=== PATIENT | male | born 1955 | race Caucasian/White ===

== ENCOUNTER 2016-10-12 19:29 | Inpatient (IN) | payer MEDICARE, MEDICAID ==
[~2016-10-12] VITALS: Ht 182.9 cm; Wt 115.0 kg
[~2016-10-12 19:29] MED LIST: ALLO300 PO; AMIT25TA9 PO; ASPI-1061 PO; ATOR20TA86 PO; DIVA500T52 PO; LISI-661 PO; LURA40 PO; METF850T2 PO
[2016-10-12] MEDS ORDERED: SILV20CR2 TP (19:42)
[2016-10-12] MEDS ORDERED: NORT25 PO (19:42)
[2016-10-12] MEDS ORDERED: DOXY100C PO (19:42)
[2016-10-12] MEDS ORDERED: INSLAN SQ (19:42)
[2016-10-12 19:47] LABS: BASOPHILS % (AUTO) 0.6 % (0.0-2.0); EOSINOPHILS % (AUTO) 2.8 % (1.0-6.0); HEMATOCRIT 45.4 % (41-53); HEMOGLOBIN 14.7 g/dL (13.5-17.5); LYMPHOCYTES # (AUTO) 1.9 K/uL (1.0-4.8); LYMPHOCYTES % (AUTO) 22.5 % (22.0-44.0); MEAN CORPUSCULAR HEMOGLOBIN 29.5 pg (26.0-34.0); MEAN CORPUSCULAR HGB CONC 32.4 G/dL (31.0-37.0); MEAN CORPUSCULAR VOLUME 91 fL (80-100); MONOCYTES # (AUTO) 0.7 K/uL (0.1-1.0); MONOCYTES % (AUTO) 8.3 % (2.0-9.0); NEUTROPHILS # (AUTO) 5.4 K/uL (1.8-7.7); NEUTROPHILS % (AUTO) 65.8 % (40.0-70.0); PLATELET COUNT (AUTO) 189 K/uL (150-450); RED BLOOD CELL COUNT(AUTO) 4.98 MIL/uL (4.50-5.90); RED CELL DISTRIBUTION WIDTH 14.8 % (11.5-14.5); WHITE BLOOD COUNT (AUTO) 8.2 K/uL (4.5-11.0)
[2016-10-12 19:57] LABS: CALCIUM, TOTAL 8.5 mg/dL (8.8-10.5); CREATININE 1.41 mg/dL (0.60-1.30); POTASSIUM 4.3 mmol/L (3.5-5.1)
[2016-10-12 20:03] LABS: ALBUMIN 3.7 g/dL (3.4-5.0); BILIRUBIN,TOTAL 0.7 mg/dL (0.1-1.0); TOTAL PROTEIN, SERUM 7.4 g/dL (6.4-8.2)
[2016-10-12] MEDS ORDERED: NITROGLYCERIN 2% (1 GM=INCH) PACKET TP ONE (20:30)
[2016-10-12] MEDS ORDERED: ASPIRIN 325 MG TABLET PO ONE (20:30)
[2016-10-12] MEDS ORDERED: NITROGLYCERIN 0.4 MG SUBLINGUAL TABLET #25 SL ONE (20:30)
[2016-10-12] MEDS ORDERED: ONDANSETRON HCL 4 MG/2 ML VIAL IVP ONE (21:00)
[2016-10-12] MEDS ORDERED: HYDROmorphone 2 MG/ML SYRINGE IVP ONE (21:00)
[2016-10-12] MEDS ORDERED: ONDANSETRON HCL 4 MG/2 ML VIAL IVP PRN (22:00)
[2016-10-12] MEDS ORDERED: ACETAMINOPHEN 325 MG TABLET PO PRN (22:00)
[2016-10-12] MEDS ORDERED: 0.9% SODIUM CHLORIDE 10 ML SYRINGE IVP PRN (22:00)
[2016-10-13 05:48] LABS: BASOPHILS % (AUTO) 0.5 % (0.0-2.0); EOSINOPHILS % (AUTO) 3.8 % (1.0-6.0); HEMATOCRIT 42.1 % (41-53); HEMOGLOBIN 13.6 g/dL (13.5-17.5); LYMPHOCYTES # (AUTO) 1.5 K/uL (1.0-4.8); LYMPHOCYTES % (AUTO) 21.1 % (22.0-44.0); MEAN CORPUSCULAR HEMOGLOBIN 29.7 pg (26.0-34.0); MEAN CORPUSCULAR HGB CONC 32.3 G/dL (31.0-37.0); MEAN CORPUSCULAR VOLUME 92 fL (80-100); MONOCYTES # (AUTO) 0.8 K/uL (0.1-1.0); NEUTROPHILS # (AUTO) 4.4 K/uL (1.8-7.7); NEUTROPHILS % (AUTO) 62.6 % (40.0-70.0); PLATELET COUNT (AUTO) 178 K/uL (150-450); RED BLOOD CELL COUNT(AUTO) 4.58 MIL/uL (4.50-5.90); RED CELL DISTRIBUTION WIDTH 14.4 % (11.5-14.5); WHITE BLOOD COUNT (AUTO) 7.1 K/uL (4.5-11.0)
[2016-10-13 06:07] LABS: ALBUMIN 3.3 g/dL (3.4-5.0); BILIRUBIN,TOTAL 0.7 mg/dL (0.1-1.0); CALCIUM, TOTAL 8.1 mg/dL (8.8-10.5); CREATININE 1.3 mg/dL (0.60-1.30); POTASSIUM 4.4 mmol/L (3.5-5.1); TOTAL PROTEIN, SERUM 6.7 g/dL (6.4-8.2)
[2016-10-13 07:21] LABS: GLUCOSE,POINT OF CARE 217 MG/DL (70-110)
[2016-10-13 11:21] LABS: GLUCOSE,POINT OF CARE 268 MG/DL (70-110)
[2016-10-13] MEDS ORDERED: INSULIN REGULAR, HUMAN 100 UNITS/ML SQ PRN (13:30)
[2016-10-13] MEDS ORDERED: DEXTROSE 50%-WATER 25 GM/50 ML SYG IVP PRN (13:45)
[2016-10-13 14:04] LABS: GLUCOSE,POINT OF CARE 214 MG/DL (70-110)
[2016-10-13] MEDS: MetFORMIN HCL 850 MG TABLET PO SCH ×2 (15:20→17:16)
[2016-10-13 17:28] VITALS: BP 150/75
[2016-10-13] MEDS ORDERED: LURASIDONE HCL 40 MG TABLET PO SCH (18:00)
[2016-10-13] MEDS ORDERED: MetFORMIN HCL 850 MG TABLET PO SCH (18:00)
[2016-10-13] MEDS ORDERED: HYDROCODONE/ACETAMINOPHEN 5-325 MG TABLET PO PRN (18:00)
[2016-10-13 19:15] VITALS: BP 125/69
[2016-10-13] MEDS ORDERED: SODIUM CHLORIDE 0.9% 100 ML ONE (21:22)
[2016-10-13] MEDS ORDERED: IOVERSOL 350 MG/ML 150 ML VIAL ONE (21:22)
[2016-10-14] VITALS: BP 149/78
[2016-10-14] MEDS: DIVALPROEX SODIUM 500 MG ER TABLET PO SCH ×2 (00:16→21:23)
[2016-10-14] MEDS: ATORVASTATIN CALCIUM 20 MG TABLET PO SCH ×2 (00:17→21:23)
[2016-10-14] MEDS: ALLOPURINOL 100 MG TABLET PO SCH ×3 (00:18→21:23)
[2016-10-14] MEDS: NORTRIPTYLINE HCL 25 MG CAPSULE PO SCH ×2 (00:18→21:23)
[2016-10-14] MEDS: DOXYCYCLINE 100 MG CAPSULE PO SCH ×3 (00:18→21:23)
[2016-10-14] MEDS: HEPARIN SODIUM,PORCINE 5,000 UNITS/ML VIAL SQ SCH ×3 (00:19→15:34)
[2016-10-14] MEDS: INSULIN DETEMIR 100 UNITS/ML SQ SCH ×2 (00:20→21:30)
[2016-10-14] MEDS: INSULIN ASPART 100 UNITS/ML SQ PRN ×5 (00:21→20:56)
[2016-10-14 04:45] VITALS: BP 112/54
[2016-10-14 07:50] VITALS: BP 125/75
[2016-10-14] MEDS: MetFORMIN HCL 850 MG TABLET PO SCH ×3 (08:00→15:35)
[2016-10-14] MEDS: SILVER SULFADIAZINE 1% 25 GM CREAM TP SCH (08:12)
[2016-10-14] MEDS: ASPIRIN 81 MG EC TABLET PO SCH (08:12)
[2016-10-14] MEDS: LISINOPRIL 10 MG TABLET PO SCH (08:12)
[2016-10-14] MEDS ORDERED: ALLO100T PO (10:52)
[2016-10-14 10:56] VITALS: BP 115/64
[2016-10-14 15:57] VITALS: BP 104/60
[2016-10-14] MEDS ORDERED: LURASIDONE HCL 40 MG TABLET PO SCH (18:00)
[2016-10-14] MEDS ORDERED: LURASIDONE 40 MG PO SCH ×2 (18:00)
[2016-10-14 19:27] VITALS: BP 106/54
[2016-10-15 00:06] VITALS: BP 128/70
[2016-10-15] MEDS: HEPARIN SODIUM,PORCINE 5,000 UNITS/ML VIAL SQ SCH ×2 (00:56→08:00)
[2016-10-15 04:13] VITALS: BP 106/56
[2016-10-15 07:01] LABS: BASOPHILS % (AUTO) 0.6 % (0.0-2.0); EOSINOPHILS % (AUTO) 5.6 % (1.0-6.0); HEMATOCRIT 42.4 % (41-53); HEMOGLOBIN 13.8 g/dL (13.5-17.5); LYMPHOCYTES # (AUTO) 2.3 K/uL (1.0-4.8); LYMPHOCYTES % (AUTO) 34.4 % (22.0-44.0); MEAN CORPUSCULAR HEMOGLOBIN 29.9 pg (26.0-34.0); MEAN CORPUSCULAR HGB CONC 32.6 G/dL (31.0-37.0); MEAN CORPUSCULAR VOLUME 92 fL (80-100); MONOCYTES # (AUTO) 0.6 K/uL (0.1-1.0); MONOCYTES % (AUTO) 9.3 % (2.0-9.0); NEUTROPHILS # (AUTO) 3.4 K/uL (1.8-7.7); NEUTROPHILS % (AUTO) 50.1 % (40.0-70.0); PLATELET COUNT (AUTO) 172 K/uL (150-450); RED BLOOD CELL COUNT(AUTO) 4.62 MIL/uL (4.50-5.90); RED CELL DISTRIBUTION WIDTH 14.5 % (11.5-14.5); WHITE BLOOD COUNT (AUTO) 6.7 K/uL (4.5-11.0)
[2016-10-15 07:18] LABS: HEMOGLOBIN A1C 8.9 % (4.5-6.2)
[2016-10-15 07:22] LABS: ANION GAP 9 mmol/L (8-16); CALCIUM, TOTAL 8.3 mg/dL (8.8-10.5); CARBON DIOXIDE 27 mmol/L (22-29); CHLORIDE 98 mmol/L (98-107); CHOL/HDL RATIO 5.1 (4.2-7.3); CREATININE 1.21 mg/dL (0.60-1.30); GLOMERULAR FILTR. RATE CALC > 60 mL/min (>60); POTASSIUM 3.9 mmol/L (3.5-5.1); SODIUM SERUM 134 mmol/L (136-145); UREA NITROGEN, BLOOD 25 mg/dL (7-18)
[2016-10-15 07:42] VITALS: BP 99/58
[2016-10-15] MEDS: LISINOPRIL 10 MG TABLET PO SCH (07:45)
[2016-10-15] MEDS: MetFORMIN HCL 850 MG TABLET PO SCH ×2 (07:45→12:00)
[2016-10-15] MEDS: ASPIRIN 81 MG EC TABLET PO SCH (07:45)
[2016-10-15] MEDS: DOXYCYCLINE 100 MG CAPSULE PO SCH (07:45)
[2016-10-15] MEDS: ALLOPURINOL 100 MG TABLET PO SCH (07:46)
[2016-10-15] MEDS: SILVER SULFADIAZINE 1% 25 GM CREAM TP SCH (08:27)
[2016-10-15 08:35] VITALS: BP 107/68
[2016-10-15] MEDS ORDERED: DOBUTamine HCL/D5W 500 MG/250 ML IV BAG [STRESS LAB ONLY] IV ONE ×2 (09:38→14:29)
[2016-10-15 10:03] VITALS: BP 135/54
[2016-10-15 11:45] VITALS: BP 101/48
[2016-10-15] MEDS: INSULIN ASPART 100 UNITS/ML SQ PRN (12:13)
[2016-10-18 20:12] LABS: GLUCOSE COMMENT 1 Received Meds; GLUCOSE,POINT OF CARE 215 MG/DL (70-110)
[2016-10-18 20:12] LABS: GLUCOSE COMMENT 1 Received Meds; GLUCOSE,POINT OF CARE 273 MG/DL (70-110)
[2016-10-18 20:16] LABS: GLUCOSE COMMENT 1 Received Meds; GLUCOSE,POINT OF CARE 242 MG/DL (70-110)
[2016-10-18 20:27] LABS: GLUCOSE,POINT OF CARE 202 MG/DL (70-110)
[2016-10-25 16:53] LABS: GLUCOSE COMMENT 1 Received Meds; GLUCOSE,POINT OF CARE 193 MG/DL (70-110)
[2016-10-25 16:53] LABS: GLUCOSE COMMENT 1 Received Meds; GLUCOSE,POINT OF CARE 248 MG/DL (70-110)
[2016-10-25 16:53] LABS: GLUCOSE COMMENT 1 Received Meds; GLUCOSE,POINT OF CARE 262 MG/DL (70-110)
== END 2016-10-15 14:30 | disposition home or self-care (01) | DRG 206 ==
LOC: EMS 19:30 → 5S 10-13 16:04
PROVIDERS: ADMIT Family Medicine; ATTEND Family Medicine
DX: M94.0 Chondrocostal junction syndrome [Tietze] (principal); E78.5 Hyperlipidemia, unspecified; M10.00 Idiopathic gout, unspecified site; G40.909 Epilepsy, unspecified, not intractable, without status epilepticus; M19.90 Unspecified osteoarthritis, unspecified site; E11.621 Type 2 diabetes mellitus with foot ulcer; L97.509 Non-pressure chronic ulcer of other part of unspecified foot with unspecified severity; I11.0 Hypertensive heart disease with heart failure; I50.9 Heart failure, unspecified; Z79.4 Long term (current) use of insulin; Z86.73 Personal history of transient ischemic attack (TIA), and cerebral infarction without residual deficits; Z79.899 Other long term (current) drug therapy; Z88.6 Allergy status to analgesic agent; Z88.1 Allergy status to other antibiotic agents; Z79.82 Long term (current) use of aspirin
CPT/HCPCS: 71275; 82962; 83036; 83735; 93005; 93017; 93350; 96374; 96375; 99285; J1170; J1250; J1644; J2405; J7050

== ENCOUNTER 2016-11-18 19:43 | Emergency (ER) | payer MEDICARE, MEDICAID ==
[~2016-11-18] VITALS: Ht 182.9 cm; Wt 114.1 kg
[~2016-11-18 19:43] MED LIST changes: +ALLO100T PO; -ALLO300 PO; -AMIT25TA9 PO; +DOXY100C PO; +INSLAN SQ; +NORT25 PO; +SILV20CR2 TP
[2016-11-18 19:57] LABS: GLUCOSE,POINT OF CARE 353 MG/DL (70-110)
[2016-11-18 20:56] LABS: BASOPHILS % (AUTO) 0.2 % (0.0-2.0); EOSINOPHILS % (AUTO) 1.9 % (1.0-6.0); HEMATOCRIT 42.8 % (41-53); HEMOGLOBIN 14.1 g/dL (13.5-17.5); LYMPHOCYTES # (AUTO) 1.5 K/uL (1.0-4.8); LYMPHOCYTES % (AUTO) 21.7 % (22.0-44.0); MEAN CORPUSCULAR HEMOGLOBIN 30.1 pg (26.0-34.0); MEAN CORPUSCULAR HGB CONC 32.9 G/dL (31.0-37.0); MEAN CORPUSCULAR VOLUME 92 fL (80-100); MONOCYTES # (AUTO) 0.7 K/uL (0.1-1.0); MONOCYTES % (AUTO) 9.6 % (2.0-9.0); NEUTROPHILS # (AUTO) 4.6 K/uL (1.8-7.7); NEUTROPHILS % (AUTO) 66.6 % (40.0-70.0); PLATELET COUNT (AUTO) 187 K/uL (150-450); RED BLOOD CELL COUNT(AUTO) 4.66 MIL/uL (4.50-5.90); RED CELL DISTRIBUTION WIDTH 14.8 % (11.5-14.5)
[2016-11-18 21:07] LABS: ANION GAP 11 mmol/L (8-16); CARBON DIOXIDE 27 mmol/L (22-29); CHLORIDE 95 mmol/L (98-107); CREATININE 1.75 mg/dL (0.60-1.30); GLOMERULAR FILTR. RATE CALC 40 mL/min (>60); POTASSIUM 4.5 mmol/L (3.5-5.1); SODIUM SERUM 133 mmol/L (136-145); UREA NITROGEN, BLOOD 32 mg/dL (7-18)
[2016-11-18 21:13] LABS: ALANINE AMINOTRANSFERASE 48 U/L (12-78); ALBUMIN 3.8 g/dL (3.4-5.0); AMYLASE 30 U/L (25-115); ASPARTATE AMINOTRANSFERASE 26 U/L (15-37); BILIRUBIN,TOTAL 0.7 mg/dL (0.1-1.0); TOTAL PROTEIN, SERUM 7.2 g/dL (6.4-8.2)
[2016-11-18] MEDS ORDERED: INSULIN REGULAR, HUMAN 100 UNITS/ML IVP ONE (21:15)
[2016-11-18] MEDS ORDERED: HYDROmorphone 2 MG/ML SYRINGE IVP ONE ×2 (21:15→23:30)
[2016-11-18] MEDS ORDERED: ONDANSETRON HCL 4 MG/2 ML VIAL IVP ONE (21:15)
[2016-11-18] MEDS ORDERED: BARIUM SULFATE 0.1% SUSPENSION 450 ML BOTTLE PO ONE (21:15)
[2016-11-18] MEDS: SODIUM CHLORIDE 0.9% 1,000 ML IV SCH ×2 (21:20→22:24)
[2016-11-18 21:31] LABS: GLUCOSE,POINT OF CARE 304 MG/DL (70-110)
[2016-11-18 23:07] LABS: GLUCOSE,POINT OF CARE 244 MG/DL (70-110)
[2016-11-19 01:11] LABS: APPEARANCE,URINE CLEAR (CLEAR); GLUCOSE, URINE (UA) >=1000 mg/dL (NEGATIVE); KETONES,URINE NEGATIVE (NEGATIVE); LEUKOCYTE ESTERASE ,URINE NEGATIVE (NEGATIVE); OCCULT BLOOD,URINE NEGATIVE (NEGATIVE); PH,URINE 6.5 (5.0-8.0); PROTEIN,URINE NEGATIVE (NEGATIVE)
[2016-11-19 01:13] LABS: ADD UA MICROSCOPIC YES
[2016-11-19 01:22] LABS: RBC,URINE None Seen /HPF (0-2); WBC,URINE None Seen /HPF (0-5)
[2016-11-19] MEDS ORDERED: DIPHENOXYLATE/ATROP 2.5-0.025 MG TABLET PO ONE (01:30)
[2016-11-19 01:35] VITALS: BP 138/79
== END 2016-11-19 01:48 | disposition home or self-care (01) ==
LOC: EMS 19:47
DX: K52.9 Noninfective gastroenteritis and colitis, unspecified (principal); E86.0 Dehydration; E11.65 Type 2 diabetes mellitus with hyperglycemia; N28.9 Disorder of kidney and ureter, unspecified; I11.0 Hypertensive heart disease with heart failure; I50.9 Heart failure, unspecified; Z88.1 Allergy status to other antibiotic agents; Z88.5 Allergy status to narcotic agent; Z79.4 Long term (current) use of insulin; Z79.82 Long term (current) use of aspirin
CPT/HCPCS: 36415; 51702; 71010; 74176; 80053; 81001; 82009; 82150; 82962; 83690; 84484; 85025; 93005; 96361; 96374; 96375; 96376; 99285; J1170; J1815; J2405; J7030

== ENCOUNTER 2017-01-25 12:43 | Emergency (ER) | payer MEDICARE, MEDICAID ==
[~2017-01-25] VITALS: Ht 188 cm; Wt 13.2 kg
[~2017-01-25 12:43] MED LIST changes: +BENZ1TAB10 PO; +CLOT12CR TP; -DOXY100C PO; -SILV20CR2 TP; +TICA90TA PO
[2017-01-25 13:04] LABS: BASOPHILS # (AUTO) 0.02 K/uL (0.00-0.20); BASOPHILS % (AUTO) 0.3 % (0.0-2.0); EOSINOPHILS # (AUTO) 0.21 K/uL (0.00-0.70); EOSINOPHILS % (AUTO) 2.37 % (1.0-6.0); HEMATOCRIT 41.4 % (41-53); HEMOGLOBIN 13.8 g/dL (13.5-17.5); LYMPHOCYTES # (AUTO) 1.5 K/uL (1.0-4.8); LYMPHOCYTES % (AUTO) 17.2 % (22.0-44.0); MEAN CORPUSCULAR HGB CONC 33.4 G/dL (31.0-37.0); MEAN CORPUSCULAR VOLUME 93 fL (80-100); MONOCYTES # (AUTO) 0.7 K/uL (0.1-1.0); MONOCYTES % (AUTO) 7.6 % (2.0-9.0); NEUTROPHILS # (AUTO) 6.5 K/uL (1.8-7.7); NEUTROPHILS % (AUTO) 72.6 % (40.0-70.0); PLATELET COUNT (AUTO) 192 K/uL (150-450); RED BLOOD CELL COUNT(AUTO) 4.46 MIL/uL (4.50-5.90); RED CELL DISTRIBUTION WIDTH 14.7 % (11.5-14.5); WHITE BLOOD COUNT (AUTO) 8.9 K/uL (4.5-11.0)
[2017-01-25 13:13] LABS: CALCIUM, TOTAL 8.6 mg/dL (8.8-10.5); CREATININE 1.69 mg/dL (0.60-1.30); POTASSIUM 4.9 mmol/L (3.5-5.1)
[2017-01-25 13:19] LABS: ALBUMIN 3.8 g/dL (3.4-5.0); TOTAL PROTEIN, SERUM 7.2 g/dL (6.4-8.2)
[2017-01-25] MEDS ORDERED: LORazepam 2 MG/ML VIAL IM ONE (15:00)
[2017-01-25] MEDS ORDERED: DIVALPROEX SODIUM 500 MG ER TABLET PO ONE (15:00)
[2017-01-25 16:14] VITALS: BP 116/65
== END 2017-01-25 16:16 | disposition home or self-care (01) ==
LOC: EMS 12:44
DX: R00.2 Palpitations (principal); F41.9 Anxiety disorder, unspecified; R11.2 Nausea with vomiting, unspecified; R42 Dizziness and giddiness; R61 Generalized hyperhidrosis; I11.0 Hypertensive heart disease with heart failure; I50.9 Heart failure, unspecified; E11.621 Type 2 diabetes mellitus with foot ulcer; Z79.82 Long term (current) use of aspirin; Z79.4 Long term (current) use of insulin; Z88.1 Allergy status to other antibiotic agents; Z88.5 Allergy status to narcotic agent
CPT/HCPCS: 36415; 71010; 80053; 84484; 85025; 93005; 96372; 99285; J2060

== ENCOUNTER 2017-06-02 03:57 | Emergency (ER) | payer MEDICARE, MEDICAID ==
[~2017-06-02] VITALS: Ht 182.9 cm; Wt 103.2 kg
[~2017-06-02 03:57] MED LIST changes: -ASPI-1061 PO; +ASPI81TA33 PO
[2017-06-02] MEDS ORDERED: SILV20CR11 TP (04:04)
[2017-06-02] MEDS ORDERED: MethylPREDNISolone SOD SUCC 125 MG/2 ML VIAL IVP ONE (04:15)
[2017-06-02] MEDS ORDERED: DiphenhydrAMINE HCL 50 MG/ML VIAL IVP ONE (04:15)
[2017-06-02 04:37] LABS: BASOPHILS % (AUTO) 0.2 % (0.0-2.0); EOSINOPHILS % (AUTO) 0.5 % (1.0-6.0); HEMATOCRIT 47.9 % (41-53); LYMPHOCYTES # (AUTO) 4.5 K/uL (1.0-4.8); LYMPHOCYTES % (AUTO) 29.1 % (22.0-44.0); MEAN CORPUSCULAR HGB CONC 33.3 G/dL (31.0-37.0); MEAN CORPUSCULAR VOLUME 93 fL (80-100); MONOCYTES # (AUTO) 0.9 K/uL (0.1-1.0); MONOCYTES % (AUTO) 5.7 % (2.0-9.0); NEUTROPHILS % (AUTO) 64.5 % (40.0-70.0); PLATELET COUNT (AUTO) 208 K/uL (150-450); RED BLOOD CELL COUNT(AUTO) 5.15 MIL/uL (4.50-5.90); RED CELL DISTRIBUTION WIDTH 15.4 % (11.5-14.5); WHITE BLOOD COUNT (AUTO) 15.5 K/uL (4.5-11.0)
[2017-06-02 04:43] LABS: CALCIUM, TOTAL 7.9 mg/dL (8.8-10.5); CREATININE 2.36 mg/dL (0.60-1.30); POTASSIUM 4.3 mmol/L (3.5-5.1)
[2017-06-02 04:48] LABS: ALBUMIN 3.7 g/dL (3.4-5.0); BILIRUBIN,TOTAL 1.7 mg/dL (0.1-1.0); TOTAL PROTEIN, SERUM 6.7 g/dL (6.4-8.2)
[2017-06-02] MEDS ORDERED: SODIUM CHLORIDE 0.9% 500 ML IV ONE (05:00)
[2017-06-02 05:54] VITALS: BP 94/60
== END 2017-06-02 06:04 | disposition home or self-care (01) ==
LOC: EMS 03:58
DX: T78.3XXA Angioneurotic edema, initial encounter (principal); I11.0 Hypertensive heart disease with heart failure; I50.9 Heart failure, unspecified; E11.621 Type 2 diabetes mellitus with foot ulcer; Z79.4 Long term (current) use of insulin; Z88.1 Allergy status to other antibiotic agents; Z88.5 Allergy status to narcotic agent
CPT/HCPCS: 36415; 80053; 82962; 85025; 96361; 96374; 96375; 99285; J1200; J2930; J7030

== ENCOUNTER 2017-06-04 07:36 | Inpatient (IN) | payer MEDICARE, MEDICAID ==
[~2017-06-04] VITALS: Ht 182.9 cm; Wt 103.8 kg
[~2017-06-04 07:36] MED LIST changes: +SILV20CR11 TP
[2017-06-04] MEDS ORDERED: ACETAMINOPHEN 500 MG TABLET PO ONE (08:00)
[2017-06-04] MEDS ORDERED: SODIUM CHLORIDE 0.9% 1,000 ML IV ONE (08:00)
[2017-06-04 08:37] LABS: GLUCOSE,POINT OF CARE 93 MG/DL (70-110)
[2017-06-04 08:39] LABS: BASOPHILS % (AUTO) 0.3 % (0.0-2.0); EOSINOPHILS % (AUTO) 1.2 % (1.0-6.0); HEMOGLOBIN 11.2 g/dL (13.5-17.5); LYMPHOCYTES # (AUTO) 0.8 K/uL (1.0-4.8); LYMPHOCYTES % (AUTO) 10.3 % (22.0-44.0); MEAN CORPUSCULAR HEMOGLOBIN 31.8 pg (26.0-34.0); MEAN CORPUSCULAR HGB CONC 34.1 G/dL (31.0-37.0); MEAN CORPUSCULAR VOLUME 93 fL (80-100); MONOCYTES # (AUTO) 1.1 K/uL (0.1-1.0); NEUTROPHILS % (AUTO) 74.2 % (40.0-70.0); PLATELET COUNT (AUTO) 176 K/uL (150-450); RED BLOOD CELL COUNT(AUTO) 3.53 MIL/uL (4.50-5.90); RED CELL DISTRIBUTION WIDTH 15.1 % (11.5-14.5)
[2017-06-04 08:47] LABS: CALCIUM, TOTAL 8.2 mg/dL (8.8-10.5); CREATININE 2.17 mg/dL (0.60-1.30); POTASSIUM 4.2 mmol/L (3.5-5.1)
[2017-06-04 08:53] LABS: ALBUMIN 3.5 g/dL (3.4-5.0); BILIRUBIN,TOTAL 0.9 mg/dL (0.1-1.0); TOTAL PROTEIN, SERUM 6.4 g/dL (6.4-8.2)
[2017-06-04] MEDS ORDERED: ONDANSETRON HCL 4 MG/2 ML VIAL IVP PRN (10:45)
[2017-06-04] MEDS ORDERED: ACETAMINOPHEN 325 MG TABLET PO PRN (10:45)
[2017-06-04 15:50] VITALS: BP 120/63
[2017-06-04] MEDS ORDERED: DEXTROSE 50%-WATER 25 GM/50 ML SYRINGE IVP PRN (17:45)
[2017-06-04] MEDS ORDERED: [UNRECOGNIZED DRUG - OTHER] PO SCH (18:15)
[2017-06-04 20:37] VITALS: BP 107/66
[2017-06-04] MEDS: ALLOPURINOL 100 MG TABLET PO SCH (21:23)
[2017-06-04] MEDS: NORTRIPTYLINE HCL 25 MG CAPSULE PO SCH (21:23)
[2017-06-04] MEDS: ATORVASTATIN CALCIUM 20 MG TABLET PO SCH (21:23)
[2017-06-04] MEDS: MetFORMIN HCL 500 MG TABLET PO SCH (21:23)
[2017-06-04] MEDS: CLOTRIMAZOLE 1% 15 GM CREAM TP SCH (21:24)
[2017-06-04] MEDS: TICAGRELOR 60 MG TABLET PO SCH (21:24)
[2017-06-04] MEDS: BENZTROPINE MESYLATE 1 MG TABLET PO SCH (21:24)
[2017-06-04] MEDS: DIVALPROEX SODIUM 500 MG ER TABLET PO SCH (21:24)
[2017-06-04] MEDS: INSULIN ASPART 100 UNITS/ML SQ PRN (21:40)
[2017-06-04] MEDS: INSULIN GLARGINE,HUM.REC.ANLOG 100 UNITS/ML SQ SCH (21:42)
[2017-06-05 00:15] VITALS: BP 135/64
[2017-06-05 04:45] VITALS: BP 129/71
[2017-06-05 06:34] LABS: BASOPHILS # (AUTO) 0.02 K/uL (0.00-0.20); BASOPHILS % (AUTO) 0.3 % (0.0-2.0); EOSINOPHILS # (AUTO) 0.15 K/uL (0.00-0.70); EOSINOPHILS % (AUTO) 2.21 % (1.0-6.0); HEMATOCRIT 31.8 % (41-53); HEMOGLOBIN 10.6 g/dL (13.5-17.5); LYMPHOCYTES # (AUTO) 1.1 K/uL (1.0-4.8); LYMPHOCYTES % (AUTO) 15.5 % (22.0-44.0); MEAN CORPUSCULAR HEMOGLOBIN 31.5 pg (26.0-34.0); MEAN CORPUSCULAR HGB CONC 33.5 G/dL (31.0-37.0); MEAN CORPUSCULAR VOLUME 94 fL (80-100); MONOCYTES % (AUTO) 14.3 % (2.0-9.0); NEUTROPHILS # (AUTO) 4.7 K/uL (1.8-7.7); NEUTROPHILS % (AUTO) 67.7 % (40.0-70.0); PLATELET COUNT (AUTO) 151 K/uL (150-450); RED BLOOD CELL COUNT(AUTO) 3.38 MIL/uL (4.50-5.90)
[2017-06-05 06:47] LABS: HEMOGLOBIN A1C 6.4 % (4.5-6.2)
[2017-06-05 07:02] VITALS: BP 104/54
[2017-06-05 07:09] LABS: CALCIUM, TOTAL 8.2 mg/dL (8.8-10.5); CHOL/HDL RATIO 2.9 (4.2-7.3); CREATININE 1.34 mg/dL (0.60-1.30); POTASSIUM 3.6 mmol/L (3.5-5.1); THYROID STIMULATING HORMONE 2.06 uIU/mL (0.36-3.74)
[2017-06-05] MEDS: LISINOPRIL 10 MG TABLET PO SCH (08:49)
[2017-06-05] MEDS: MetFORMIN HCL 500 MG TABLET PO SCH (08:51)
[2017-06-05] MEDS: ASPIRIN 81 MG EC TABLET PO SCH (08:51)
[2017-06-05] MEDS: ALLOPURINOL 100 MG TABLET PO SCH ×2 (08:52→20:28)
[2017-06-05] MEDS: DIVALPROEX SODIUM 500 MG ER TABLET PO SCH ×4 (08:52→20:28)
[2017-06-05] MEDS: TICAGRELOR 60 MG TABLET PO SCH ×2 (08:52→20:28)
[2017-06-05] MEDS: SILVER SULFADIAZINE 1% 25 GM CREAM TP SCH (08:53)
[2017-06-05] MEDS: CLOTRIMAZOLE 1% 15 GM CREAM TP SCH ×2 (08:53→20:27)
[2017-06-05 10:55] VITALS: BP 109/59
[2017-06-05] MEDS ORDERED: GADOBUTROL 1 MMOL/ML 10 ML VIAL IVP ONE (12:28)
[2017-06-05 15:24] VITALS: BP 112/62
[2017-06-05 19:12] VITALS: BP 109/63
[2017-06-05] MEDS: BENZTROPINE MESYLATE 1 MG TABLET PO SCH (20:27)
[2017-06-05] MEDS: NORTRIPTYLINE HCL 25 MG CAPSULE PO SCH (20:27)
[2017-06-05] MEDS: ATORVASTATIN CALCIUM 20 MG TABLET PO SCH (20:28)
[2017-06-05] MEDS: INSULIN GLARGINE,HUM.REC.ANLOG 100 UNITS/ML SQ SCH (20:32)
[2017-06-05 23:22] LABS: GLUCOMETER DEV NAME(LOC) 5S 2N; GLUCOSE,POINT OF CARE 84 MG/DL (70-110)
[2017-06-05 23:22] LABS: GLUCOMETER DEV NAME(LOC) 5S 2N; GLUCOSE,POINT OF CARE 154 MG/DL (70-110)
[2017-06-05 23:26] LABS: GLUCOMETER DEV NAME(LOC) 5S 2N; GLUCOSE,POINT OF CARE 74 MG/DL (70-110)
[2017-06-05 23:32] LABS: GLUCOMETER DEV NAME(LOC) 5S 2N; GLUCOSE,POINT OF CARE 96 MG/DL (70-110)
[2017-06-06 00:08] VITALS: BP 101/58
[2017-06-06] MEDS ORDERED: HYDROCODONE/ACETAMINOPHEN 5-325 MG TABLET PO PRN (01:45)
[2017-06-06] MEDS ORDERED: ACETAMINOPHEN 325 MG TABLET PO PRN (01:45)
[2017-06-06 04:31] VITALS: BP 106/53
[2017-06-06 05:37] LABS: GLUCOMETER DEV NAME(LOC) 5S 1L; GLUCOSE,POINT OF CARE 119 MG/DL (70-110)
[2017-06-06 05:37] LABS: GLUCOMETER DEV NAME(LOC) 5S 1L; GLUCOSE,POINT OF CARE 115 MG/DL (70-110)
[2017-06-06 07:19] VITALS: BP 106/58
[2017-06-06] MEDS: ASPIRIN 81 MG EC TABLET PO SCH (08:10)
[2017-06-06] MEDS: ALLOPURINOL 100 MG TABLET PO SCH ×2 (08:10→21:18)
[2017-06-06] MEDS: TICAGRELOR 60 MG TABLET PO SCH ×2 (08:10→21:18)
[2017-06-06] MEDS: LISINOPRIL 10 MG TABLET PO SCH (08:10)
[2017-06-06] MEDS: DIVALPROEX SODIUM 500 MG ER TABLET PO SCH ×4 (08:10→21:18)
[2017-06-06] MEDS: CLOTRIMAZOLE 1% 15 GM CREAM TP SCH ×2 (08:11→21:18)
[2017-06-06] MEDS: SILVER SULFADIAZINE 1% 25 GM CREAM TP SCH (08:12)
[2017-06-06 11:18] VITALS: BP 130/66
[2017-06-06] MEDS: INSULIN ASPART 100 UNITS/ML SQ PRN ×2 (12:04→21:24)
[2017-06-06 16:53] VITALS: BP 102/59
[2017-06-06 18:37] LABS: GLUCOMETER DEV NAME(LOC) 5S 2N; GLUCOSE,POINT OF CARE 142 MG/DL (70-110)
[2017-06-06 18:37] LABS: GLUCOMETER DEV NAME(LOC) 5S 2N; GLUCOSE,POINT OF CARE 88 MG/DL (70-110)
[2017-06-06 19:52] LABS: GLUCOMETER DEV NAME(LOC) 5S 1L; GLUCOSE,POINT OF CARE 115 MG/DL (70-110)
[2017-06-06 20:18] VITALS: BP 113/61
[2017-06-06] MEDS: NORTRIPTYLINE HCL 25 MG CAPSULE PO SCH (21:18)
[2017-06-06] MEDS: ATORVASTATIN CALCIUM 20 MG TABLET PO SCH (21:18)
[2017-06-06] MEDS: BENZTROPINE MESYLATE 1 MG TABLET PO SCH (21:18)
[2017-06-06] MEDS: INSULIN GLARGINE,HUM.REC.ANLOG 100 UNITS/ML SQ SCH (21:25)
[2017-06-07 00:15] VITALS: BP 102/58
[2017-06-07 04:52] VITALS: BP 110/56
[2017-06-07 05:42] LABS: GLUCOMETER DEV NAME(LOC) 5S 2N; GLUCOSE,POINT OF CARE 145 MG/DL (70-110)
[2017-06-07] MEDS: INSULIN ASPART 100 UNITS/ML SQ PRN (06:38)
[2017-06-07 07:34] VITALS: BP 104/81
[2017-06-07] MEDS: ALLOPURINOL 100 MG TABLET PO SCH (08:06)
[2017-06-07] MEDS: LISINOPRIL 10 MG TABLET PO SCH (08:07)
[2017-06-07] MEDS: CLOTRIMAZOLE 1% 15 GM CREAM TP SCH (08:07)
[2017-06-07] MEDS: DIVALPROEX SODIUM 500 MG ER TABLET PO SCH (08:07)
[2017-06-07] MEDS: ASPIRIN 81 MG EC TABLET PO SCH (08:07)
[2017-06-07] MEDS: TICAGRELOR 60 MG TABLET PO SCH (08:08)
[2017-06-07] MEDS ORDERED: MetFORMIN HCL 500 MG TABLET PO SCH (09:00)
[2017-06-07] MEDS: SILVER SULFADIAZINE 1% 25 GM CREAM TP SCH (09:00)
[2017-06-07 12:05] VITALS: BP 105/61
[2017-06-15 23:53] LABS: GLUCOMETER DEV NAME(LOC) 5S 1L; GLUCOSE,POINT OF CARE 98 MG/DL (70-110)
[2017-06-15 23:53] LABS: GLUCOMETER DEV NAME(LOC) 5S 1L; GLUCOSE,POINT OF CARE 115 MG/DL (70-110)
== END 2017-06-07 13:50 | disposition left against medical advice (07) | DRG 91 ==
LOC: EMS 07:39 → 5S 14:25
PROVIDERS: ADMIT Family Medicine; ATTEND Family Medicine
DX: R27.0 Ataxia, unspecified (principal); N17.0 Acute kidney failure with tubular necrosis; E11.22 Type 2 diabetes mellitus with diabetic chronic kidney disease; E11.40 Type 2 diabetes mellitus with diabetic neuropathy, unspecified; D64.9 Anemia, unspecified; S30.1XXA Contusion of abdominal wall, initial encounter; I13.0 Hypertensive heart and chronic kidney disease with heart failure and stage 1 through stage 4 chronic kidney disease, or unspecified chronic kidney disease; I50.32 Chronic diastolic (congestive) heart failure; I50.9 Heart failure, unspecified; F45.8 Other somatoform disorders; W19.XXXA Unspecified fall, initial encounter; G24.01 Drug induced subacute dyskinesia; G40.909 Epilepsy, unspecified, not intractable, without status epilepticus; M10.9 Gout, unspecified; N18.9 Chronic kidney disease, unspecified; Z88.5 Allergy status to narcotic agent; Z88.8 Allergy status to other drugs, medicaments and biological substances; Z79.899 Other long term (current) drug therapy; Z79.4 Long term (current) use of insulin; Z79.82 Long term (current) use of aspirin; Y93.89 Activity, other specified; Y92.89 Other specified places as the place of occurrence of the external cause; Y99.8 Other external cause status
CPT/HCPCS: 70450; 70553; 74176; 82607; 82962; 83036; 84443; 93005; 93306; 93880; 96360; 96361; 97116; 97162; 97530; 99285; A9585; J1815; J7030